=== PATIENT | female | born 1940 | race Hispanic/Latino ===

== ENCOUNTER 2018-04-25 13:16 | Observation (INO) | payer MEDICARE ==
[2018-04-25] MEDS ORDERED: Sodium Chloride 0.9% 500 ML IV STA (14:53)
[2018-04-25] MEDS ORDERED: Albuterol-Ipratrop 3 mg / 0.5 (3 ml) UD INH STA (14:55)
--- NOTE | 2018-04-25 14:57 | ED PDOC ---
HPI: Influenza Time Seen by Provider: 04/25/18 14:30 Chief Complaint: Cough, Cold, Congestion Chief Complaint (Provider): cough, SOB History Per: Patient, Family (nephews) Exam Limitations: no limitations Risk factors for flu complications: Yes: adult > 65 years Additional complaint(s):: 78 y/o F with hx of hydrocephalus with OCCUPATIONAL THERAPIST REHAB MANAGER shunt who presents with cough x 1 week. Pt states that she began developing a cough with chest congestion about 1 week ago with some chest pain related to the cough. She went to an urgent care where she was diagnosed with bronchitis/?PnA and started on Moxifloxacin. She states that she her cough has been getting worse and she feels more SOB. Her appetite has been poor and she has not been eating or drinking as much as she should because she feels weak. She has also been walking off balance and having DOMINGUEZ, which were her symptoms when her hydrocephalus was diagnosed. She is concerned that the OCCUPATIONAL THERAPIST REHAB MANAGER shunt may not be functioning. Denies dizziness, palpitations, C/P, N/V, diarrhea, sore throat. Past Medical History Reviewed: Historical Data, Nursing Documentation, Vital Signs Vital Signs: Last Vital Signs Temp 98 F 04/25/18 13:17 Pulse 78 04/25/18 13:17 Resp 18 04/25/18 13:17 BP 143/83 04/25/18 13:17 Pulse Ox 96 04/25/18 13:17 - Medical History Other PMH: hydrocephalus - Surgical History Other surgeries: OCCUPATIONAL THERAPIST REHAB MANAGER shunt - Family History Family History: States: Unknown Family Hx - Social History Ex-Smoker (has not smoked in the last 12 months): Yes (quit 30yrs ago) Alcohol: None - Allergies Allergies/Adverse Reactions: Allergies Allergy/AdvReac Type Severity Reaction Status Date / Time Penicillins Allergy ANAPHYLAXIS Verified 04/25/18 13:23 Review of Systems Constitutional: Negative for: Fever, Chills, Sweats Cardiovascular: Negative for: Chest Pain, Palpitations Respiratory: Positive for: Cough, Shortness of Breath, SOB with Exertion, S putum. Negative for: Pleuritic Pain Gastrointestinal: Negative for: Nausea, Vomiting Neurological: Positive for: Incoordination, Headache. Negative for: Weakness, Numbness Physical Exam - Reviewed Nursing Documentation Reviewed: Yes Vital Signs Reviewed: Yes - Physical Exam Appears: Positive for: No Acute Distress Head Exam: Positive for: ATRAUMATIC Skin: Positive for: Normal Color Neck: Positive for: Normal Cardiovascular/Chest: Positive for: Regular Rate, Rhythm Respiratory: Positive for: Wheezing (intermittent wheezing and rhonchi in B/L upper lung zones anteriorly. No rales.). Negative for: Accessory Muscle Use, Crackles, Respiratory Distress Gastrointestinal/Abdominal: Positive for: Normal Exam Neurologic/Psych: Positive for: Alert, Oriented. Negative for: Aphasia, Facial Droop Medical Decision Making Medical Decision Making: CBC, CMP Rapid flu DuoNeb x [address] w/o contrast shunt series Head CT: Moderate ventricular dilatation despite the presence of the OCCUPATIONAL THERAPIST REHAB MANAGER shunt. The 3rd and 4th ventricles in addition to the lateral ventricles are dilated. Cortical atrophy and chronic microvascular ischemic change. Shunt series: No abnormalities identified with respect to the shunt identified and described in greater detail above. 18:00: re-evaluated: Lung sounds improved but continues to wheeze B/L. DuoNeb 3mL x 2 ordered. Pt admitted for hydrocephalus and bronchitis under Dr. Luna who recommended BNP and Troponin; ordered. Dr. Wray called from neurology who recommends Brain MRI for further evaluation of hydrocephalus and neurosurgery consult. MRI ordered and to be done in AM. Neurosurgery consulted (Dr. Brandt) who states that equipment for OCCUPATIONAL THERAPIST REHAB MANAGER shunts not present and that, if patient has a hx of normal pressure hydrocephalus, he could see her as an outpatient. - Laboratory Results Result Diagrams: 04/25/18 15:00 04/25/18 15:00 - ECG O2 Sat by Pulse Oximetry: 96 Disposition - Clinical Impression Clinical Impression: Hydrocephalus in adult - Patient ED Disposition Is Patient to be Admitted: Transfer of Care Discussed With : Mars Luna Doctor Will See Patient In The: Hospital Counseled Patient/Family Regarding: Studies Performed, Diagnosis, Need For Followup - Disposition Disposition: Transfer of Care Disposition Time: 19:51 Condition: FAIR Forms: Predikt (Sinhala)
[2018-04-25] MEDS ORDERED: Albuterol-Ipratrop 3 mg / 0.5 (3 ml) UD ONE ×3 (15:22→20:39)
[2018-04-25 15:24] LABS: BASO # 0.1 K/uL (0.0-0.2); BASO % 0.7 % (0.0-2.0); EOS % 0.4 % (0.0-4.0); HEMOGLOBIN 14.8 g/dL (12.0-16.0); LYMPH # 1.9 K/uL (1.0-4.3); LYMPH % 16.5 % (20.0-40.0); MEAN CELL VOLUME 86.1 fl (81.0-99.0); MEAN CORPUSCULAR HEMOGLOBIN 28.2 pg (27.0-31.0); MEAN CORPUSCULAR HGB CONC 32.8 g/dL (33.0-37.0); MEAN PLATELET VOLUME 7.9 fl (7.2-11.7); MONO # 1.3 K/uL (0.0-0.8); MONO % 11.9 % (0.0-10.0); NEUT # 7.9 K/uL (1.8-7.0); NEUT % 70.5 % (50.0-75.0); NRBC % 0.3 % (0.0-0.0); RBC 5.24 Mil/uL (3.80-5.20); RED CELL DISTRIBUTION WIDTH 13.3 % (11.5-14.5); WHITE BLOOD COUNT 11.3 K/uL (4.8-10.8)
[2018-04-25 15:31] LABS: ALBUMIN 4.1 g/dL (3.5-5.0); ALT/SGPT 58 U/L (9-52); AST/SGOT 52 U/L (14-36); BLOOD UREA NITROGEN 26 mg/dl (7-17); CALCIUM 9.1 mg/dL (8.4-10.2); GFR NON-AFRICAN AMERICAN > 60
--- NOTE | 2018-04-25 15:41 | RAD ---
Date of service: 04/25/2018 HISTORY: Cough and shortness of breath COMPARISON: No prior. TECHNIQUE: Chest PA and lateral FINDINGS: LINES AND TUBES: None. LUNG AND PLEURA: The lungs are hyperinflated and there is peribronchial thickening with chronic changes in both lungs. No pleural effusion or pneumothorax. HEART AND MEDIASTINUM: The heart is not enlarged. No aortic atherosclerotic calcification present. The hilar and mediastinal contours are within normal limits. SKELETAL STRUCTURES: The bony structures are within normal limits for the patient's age. VISUALIZED UPPER ABDOMEN: Normal. OTHER FINDINGS: None. IMPRESSION: No active pulmonary disease. COPD.
[2018-04-25] MEDS ORDERED: Potassium Chloride 20 mEq ER Tab PO ONE ×2 (15:57→20:37)
--- NOTE | 2018-04-25 16:46 | CARD ---
APPROVED REPORT Date of service: 04/25/2018 EKG Measurement Heart [id number] <Conclusion> Normal sinus rhythm Right bundle branch block Inferior infarct, age undetermined Abnormal ECG
--- NOTE | 2018-04-25 17:09 | CT ---
Date of service: 04/25/2018 PROCEDURE: CT HEAD WITHOUT CONTRAST. HISTORY: hx of STRAND AND BINDER CONTROLLER shunt, now c/o gait instability Headache and congestion. COMPARISON: None available. TECHNIQUE: Axial computed tomography images were obtained through the head/brain without intravenous contrast. Supplemental Coronal and Sagittal projections created and reviewed. Radiation dose: Total exam DLP = 823.88 mGy-cm. This CT exam was performed using one or more of the following dose reduction techniques: Automated exposure control, adjustment of the mA and/or kV according to patient size, and/or use of iterative reconstruction technique. FINDINGS: HEMORRHAGE: No intracranial hemorrhage. BRAIN: No mass effect or edema. Cortical atrophy and chronic microvascular ischemic change. VENTRICLES: Ventricular enlargement despite the presence of a shunt catheter entering the right frontal lobe. The catheter advances to the anterior horn of the left lateral ventricle, the tip is in the anterior horn of the right lateral ventricle. Tip CALVARIUM: Craniotomy defect right frontal region. Findings in the calvarium associate with the STRAND AND BINDER CONTROLLER shunt. PARANASAL SINUSES: Pansinusitis. This includes the noise ethmoid, maxillary sinuses with trace frontal sinus disease. MASTOID AIR CELLS: Unremarkable as visualized. No inflammatory changes. OTHER FINDINGS: None. IMPRESSION: Moderate ventricular dilatation despite the presence of the STRAND AND BINDER CONTROLLER shunt. The 3rd and 4th ventricles in addition to the lateral ventricles are dilated. Cortical atrophy and chronic microvascular ischemic change.
--- NOTE | 2018-04-25 18:31 | RAD ---
Date of service: 04/25/2018 PROCEDURE: Shuntogram HISTORY: evaluate BAKERY AND DELI SALES MANAGER shunt COMPARISON: April 25, 2018 CT head TECHNIQUE: Standard protocol for this study/examination. FINDINGS: Shunt is identified in the skull, this extends posteriorly in an uninterrupted fashion through the neck thorax and abdomen. No visible discontinuity noted. No evidence of kinking or other pathologic process. IMPRESSION: No abnormalities identified with respect to the shunt identified and described in greater detail above.
[2018-04-25 20:38] LABS: B-TYPE NATRIURETIC PEPTIDE 168 pg/ml (0-900)
[2018-04-25] MEDS: Albuterol-Ipratrop 3 mg / 0.5 (3 ml) UD INH SCH (20:41)
--- NOTE | 2018-04-26 06:29 | CP.PCM.PN ---
Subjective - Date & Time of Evaluation Date of Evaluation: 04/26/18 Time of Evaluation: 06:23 - Subjective Subjective: reviewed CT and shuntogram no old studies available On CT there is no periventricular edema to suggest shunt failure and shuntogram is normal Headache and dizziness may be related to URI She has URI and would not consider revision until this is clear Yuki does not have equipment to do MOLD BUNCH TRIMMER shunt Suggest having her come to office and will arrange revision if symptoms persist after URI is resolved. Will also attempt to get more info on shunt placement at that time Unless there is clear indication that there is altereed mental status revision is not an emergency and can be done electively Objective - Vital Signs/Intake and Output Vital Signs (last 24 hours): Temp Pulse Resp BP Pulse Ox 97.3 F L 82 20 145/86 94 L 04/25/18 23:34 04/26/18 02:20 04/26/18 02:20 04/25/18 23:34 04/26/18 02:20 - Medications Medications: Current Medications Acetaminophen (Tylenol 325mg Tab) 650 mg PO Q6 PRN PRN Reason: Headache Albuterol/Ipratropium (Duoneb 3 Mg/0.5 Mg (3 Ml) Ud) 6 ml INH RQID [facility] Last Admin: 04/25/18 20:41 Dose: Not Given Aspirin (Ecotrin) 81 mg PO DAILY [facility] Enoxaparin Sodium (Lovenox) 40 mg SC DAILY [facility]; Protocol Ondansetron HCl (Zofran Inj) 4 mg IVP Q6 PRN PRN Reason: Nausea/Vomiting - Labs Labs: 04/25/18 15:00 04/25/18 15:00
[2018-04-26 06:32] LABS: HEMOGLOBIN 14.1 g/dL (12.0-16.0); MEAN CORPUSCULAR HEMOGLOBIN 28.3 pg (27.0-31.0); MEAN CORPUSCULAR HGB CONC 32.9 g/dL (33.0-37.0); RED CELL DISTRIBUTION WIDTH 13.1 % (11.5-14.5); WHITE BLOOD COUNT 8.3 K/uL (4.8-10.8)
[2018-04-26 06:41] LABS: ALBUMIN 3.8 g/dL (3.5-5.0); ALT/SGPT 49 U/L (9-52); AST/SGOT 41 U/L (14-36); BLOOD UREA NITROGEN 20 mg/dl (7-17); CALCIUM 8.8 mg/dL (8.4-10.2); GFR NON-AFRICAN AMERICAN > 60; HDL CHOLESTEROL 23 MG/DL (30-70)
[2018-04-26 06:50] LABS: LDL CHOLESTEROL 136 mg/dL (0-129)
[2018-04-26] MEDS: Albuterol-Ipratrop 3 mg / 0.5 (3 ml) UD INH SCH ×2 (07:36→07:42)
[2018-04-26] MEDS: Enoxaparin 40 mg Syringe SC SCH (08:46)
[2018-04-26] MEDS ORDERED: Potassium Chloride 20 mEq ER Tab PO ONE (10:03)
--- NOTE | 2018-04-26 14:20 | MRI ---
Date of service: 04/26/2018 PROCEDURE: MRI BRAIN WITHOUT CONTRAST HISTORY: ventricular dilatation despite CROP OR GRAIN FARMWORKER shunt COMPARISON: None available. TECHNIQUE: Multiplanar, multisequence MR images of the brain were obtained without intravenous contrast enhancement. FINDINGS: Limitations: Extensive dephasing artifact from the well of a left ventriculo peritoneal shunt catheter obscures evaluation of the a left temporal and parietal lobes extensively, particularly in sensitive sequences including the diffusion-weighted and gradient echo axial sequences. HEMORRHAGE: None identified with sequence limited by artifact. DWI: No acute infarct identified with much of the mid to posterior left cerebrum and lateral margins left cerebellar hemisphere obscured by artifact. BRAIN PARENCHYMA: Diffuse cerebral atrophy chronic microangiopathy are reiterated with left frontal shunt catheter tip identified terminating at right lateral ventricle anteriorly by a left frontal approach and shunt well identified at the left parietal scalp. Diffuse ventricular dilatation again identified with forefoot 4th ventricle least affected though the pattern likely still reflects increasing hydrocephalus. No discrete mass is seen in this unenhanced exam in the region of the cerebral aqueduct. Old right frontal shunt related linear encephalomalacia noted at the right frontal lobe VENTRICLES: Diffuse dilatation reiterated. CRANIUM: Unremarkable. ORBITS: Grossly unremarkable. PARANASAL SINUSES/MASTOIDS: Extensive bilateral sphenoid sinusitis identified as well as multifocal ethmoid and gross bilateral maxillary sinusitis. Limited bilateral frontal sinusitis noted. Trace left mastoid effusions noted. VASCULAR SYSTEM: Skull base flow voids intact. OTHER FINDINGS: None. IMPRESSION: Compromised exam by artifact related to left ventricular shunt well. Pattern hydrocephalus persists presumably on the basis of normal pressure/communicating hydrocephalus. Left ventricular shunt identified with tip terminating at right lateral ventricle as discussed above. No distant prior brain imaging available for comparison of ventricular volume. Age-related neuro degenerative changes identified once again. Old right frontal shunt related linear encephalomalacia noted at the right frontal lobe.
--- NOTE | 2018-04-26 14:32 | CP.PCM.CON ---
History of Present Illness - History of Present Illness History of Present Illness: Neurology Consultation Note: Mrs. Cason is a 78-year-old woman with a previous history of TASSEL SNIPPER shunt, who presented to the ED with URI symptoms and complained of dizziness and gait difficulty. Neurosurgery was consulted after TASSEL SNIPPER shunt series and CT head were done and did not believe that there was any concern for shunt failure. CT scan did show hydrocephalus, but it did not appear to be acute. I spoke with ED and asked for MRI of the brain to evaluate for any periventricular edema that may suggest more acute hydrocephalus. Review of Systems - Constitutional Constitutional: As Per HPI - EENT Eyes: absent: As Per HPI, Blind Spots, Blurred Vision, Change in Vision, Decreased Night Vision, Diplopia, Discharge, Dry Eye, Exophthalmos, Floaters, Irritation, Itchy Eyes, Loss of Peripheral Vision, Pain, Photophobia, Requires Corrective Lenses, Sees Flashes, Spots in Vision, Tunnel Vision, Other Visual Disturbances, Loss of Vision, Other Ears: absent: As Per HPI, Decreased Hearing, Ear Discharge, Ear Pain, Tinnitus, Abnormal Hearing, Disequilibrium, Dizziness, Other Nose/Mouth/Throat: absent: As Per HPI, Epistaxis, Nasal Congestion, Nasal Discharge, Nasal Obstruction, Nasal Trauma, Nose Pain, Post Nasal Drip, Sinus Pain, Sinus Pressure, Bleeding Gums, Change in Voice, Dental Pain, Dry Mouth, Dysphagia, Halitosis, Hoarsness, Lip Swelling, Mouth Lesions, Mouth Pain, Odynophagia, Sore Throat, Throat Swelling, Tongue Swelling, Facial Pain, Neck Pain, Neck Mass, Other - Breasts Breasts: absent: As Per HPI, Change in Shape, Mass, Pain, Nipple Discharge, Nipple Inversion, Skin Changes, Swelling, Other - Cardiovascular Cardiovascular: absent: As Per HPI, Acrocyanosis, Chest Pain, Chest Pain at Rest, Chest Pain with Activity, Claudication, Diaphoresis, Dyspnea, Dyspnea on Exertion, Edema, Irregular Heart Rhythm, Pain Radiating to Arm/Neck/Jaw, Leg Edema, Leg Ulcers, Lightheadedness, Orthopnea, Palpitations, Paroxysmal Nocturnal Dyspnea, Pedal Edema, Radiating Pain, Rapid Heart Rate, Slow Heart Rate, Syncope, Other - Respiratory Respiratory: As Per HPI - Gastrointestinal Gastrointestinal: absent: As Per HPI, Abdominal Pain, Belching, Bloating, Change in Bowel Habits, Change in Stool Character, Coffee Ground Emesis, Constipation, Cramping, Diarrhea, Dyspepsia, Dysphagia, Early Satiety, Excessive Flatus, Fecal Incontinence, Heartburn, Hematemesis, Hematochezia, Loose Stools, Melena, Nausea, Odynophagia, Temesmus, Vomiting, Other - Genitourinary Genitourinary: absent: As Per HPI, Change in Urinary Stream, Difficulty Urinating, Dysuria, Flank Pain, Hematuria, Pyuria, Nocturia, Urinary Incontinence, Urinary Frequency, Urinary Hesitance, Urinary Urgency, Voiding Freq/Small Amts, Freq UTI, Hx Renal/Bladder Calculi, Hx /Renal Surgery, Bladder Distension, Other - Musculoskeletal Musculoskeletal: absent: As Per HPI, Abnormal Gait, Arthralgias, Atrophy, Back Pain, Deformity, Joint Swelling, Limited Range of Motion, Loss of Height, Muscle Cramps, Muscle Weakness, Myalgias, Neck Pain, Numbness, Radiating Pain into Limb , Stiffness, Tingling, Other - Integumentary Integumentary: absent: As Per HPI, Acne, Alopecia, Bleeding Lesions, Change in Hair, Change in Nails, Change in Pigmentation, Changing Lesions, Dry Skin, Erythema, Furuncle, Hirsutism, Lesions, New Lesions, Non-Healing Lesions, Photosensitivity, Pruritus, Rash, Skin Pain, Skin Ulcer, Sores, Striae, Swelling, Unusual Bruising, Wounds, Jaundice, Other - Neurological Neurological: As Per HPI - Psychiatric Psychiatric: absent: As Per HPI, Abnormal Sleep Pattern, Anhedonia, Anxiety, Auditory Hallucinations, Behavioral Changes, Change in Appetite, Change in Libido, Confusion, Depression, Difficulty Concentrating, Hallucinations, Homicid al Ideation, Hopelessness, Irritability, Memory Loss, Mood Swings, Panic Attacks, Paranoia, Suicidal Ideation, Visual Hallucinations, Tactile Hallucinations, Other - Endocrine Endocrine: absent: As Per HPI, Change in Body Appearance, Change in Libido, Cold Intolorance, Deepening of Voice, Excessive Sweating, Fatigue, Flushing, Heat Intolorance, Increase in Ring/Shoe/Hat Size, Palpitations, Polydipsia, Polyphagia, Polyuria, Other Past Patient History - Past Medical History & Family History Past Medical History?: Yes - Past Social History Smoking Status: Former Smoker - CARDIAC Hx Cardiac Disorders: No - PULMONARY Hx Respiratory Disorders: No - NEUROLOGICAL Hx Neurological Disorder: Yes Other/Comment: Hydrocephalus - HEENT Hx HEENT Problems: No - RENAL Hx Chronic Kidney Disease: No - ENDOCRINE/METABOLIC Hx Endocrine Disorders: No - HEMATOLOGICAL/ONCOLOGICAL Hx Blood Disorders: No - INTEGUMENTARY Hx Dermatological Problems: No - MUSCULOSKELETAL/RHEUMATOLOGICAL Hx Musculoskeletal Disorders: No Hx Falls: Yes - GASTROINTESTINAL Hx Gastrointestinal Disorders: No - GENITOURINARY/GYNECOLOGICAL Hx Genitourinary Disorders: No - PSYCHIATRIC Hx Psychophysiologic Disorder: No Hx Substance Use: No - SURGICAL HISTORY Hx Surgeries: No Other/Comment: TASSEL SNIPPER shunt - ANESTHESIA Hx Anesthesia: Yes Hx Anesthesia Reactions: No Meds Allergies/Adverse Reactions: Allergies Allergy/AdvReac Type Severity Reaction Status Date / Time Penicillins Allergy ANAPHYLAXIS Verified 04/25/18 13:23 - Medications Medications: Current Medications Acetaminophen (Tylenol 325mg Tab) 650 mg PO Q6 PRN PRN Reason: Headache Last Admin: 04/26/18 13:49 Dose: 650 mg Aspirin (Ecotrin) 81 mg PO DAILY [facility] Last Admin: 04/26/18 08:46 Dose: 81 mg Enoxaparin Sodium (Lovenox) 40 mg SC DAILY [facility]; Protocol Last Admin: 04/26/18 08:46 Dose: 40 mg Ondansetron HCl (Zofran Inj) 4 mg IVP Q6 PRN PRN Reason: Nausea/Vomiting Physical Exam - Constitutional Appears: Well - Head Exam Head Exam: ATRAUMATIC, NORMAL INSPECTION, NORMOCEPHALIC - Eye Exam Eye Exam: EOMI, Normal appearance, PERRL - ENT Exam ENT Exam: Mucous Membranes Moist, Normal Exam - Neck Exam Neck exam: Positive for: Normal Inspection - Respiratory Exam Respiratory Exam: Decreased Breath Sounds, NORMAL BREATHING PATTERN - Cardiovascular Exam Cardiovascular Exam: REGULAR RHYTHM, +S1, +S2 - GI/Abdominal Exam GI & Abdominal Exam: Normal Bowel Sounds, Soft. absent: Tenderness - Rectal Exam Rectal Exam: Deferred - Extremities Exam Extremities exam: Positive for: normal inspection - Back Exam Back exam: NORMAL INSPECTION - Neurological Exam Neurological exam: Abnormal Gait, Alert, CN II-XII Intact, Oriented x3, Reflexes Normal - Psychiatric Exam Psychiatric exam: Normal Affect, Normal Mood - Skin Skin Exam: Dry, Intact, Normal Color, Warm Results - Vital Signs Recent Vital Signs: Last Vital Signs Temp 97.9 F 01/08/19 07:52 Pulse 84 04/26/18 07:52 Resp 19 04/26/18 07:52 BP 137/75 04/26/18 07:52 Pulse Ox 94 L 04/26/18 07:52 - Labs Result Diagrams: 04/26/18 05:45 04/26/18 05:45 Labs: Laboratory Results - last 24 hr 04/25/18 04/25/18 04/25/18 15:00 15:00 15:00 WBC 11.3 H RBC 5.24 H Hgb 14.8 Hct 45.1 MCV 86.1 MCH 28.2 MCHC 32.8 L RDW 13.3 Plt Count 394 MPV 7.9 Neut % (Auto) 70.5 Lymph % (Auto) 16.5 L [place] % (Auto) 11.9 H Eos % (Auto) 0.4 Baso % (Auto) 0.7 Neut # (Auto) 7.9 H Lymph # (Auto) 1.9 [place] # (Auto) 1.3 H Eos # (Auto) 0.0 Baso # (Auto) 0.1 Sodium 138 Potassium 3.2 L Chloride 98 Carbon Dioxide 24 Anion Gap 19 BUN 26 H Creatinine 0.5 L Est GFR ( Amer) > 60 Est GFR (Non-Af Amer) > 60 Random Glucose 105 Calcium 9.1 Total Bilirubin 0.9 AST 52 H ALT 58 H Alkaline Phosphatase 104 Troponin I NT-Pro-B Natriuret Pep Total Protein 8.2 Albumin 4.1 Globulin 4.1 H Albumin/Globulin Ratio 1.0 Triglycerides Cholesterol LDL Cholesterol Direct HDL Cholesterol TSH 3rd Generation Influenza Typ A,B (EIA) Negative for flu a/b 04/25/18 04/26/18 04/26/18 20:09 05:45 05:45 WBC 8.3 RBC 5.00 Hgb 14.1 Hct 43.0 MCV 86.0 MCH 28.3 MCHC 32.9 L RDW 13.1 Plt Count 403 H MPV Neut % (Auto) Lymph % (Auto) [place] % (Auto) Eos % (Auto) Baso % (Auto) Neut # (Auto) Lymph # (Auto) [place] # (Auto) Eos # (Auto) Baso # (Auto) Sodium 139 Potassium 3.1 L Chloride 102 Carbon Dioxide 26 Anion Gap 14 BUN 20 H Creatinine 0.5 L Est GFR ( Amer) > 60 Est GFR (Non-Af Amer) > 60 Random Glucose 92 Calcium 8.8 Total Bilirubin 0.8 AST 41 H D ALT 49 Alkaline Phosphatase 95 Troponin I < 0.0120 NT-Pro-B Natriuret Pep 168 Total Protein 7.5 Albumin 3.8 Globulin 3.8 Albumin/Globulin Ratio 1.0 Triglycerides 113 Cholesterol 163 LDL Cholesterol Direct 136 H HDL Cholesterol 23 L TSH 3rd Generation 0.39 L Influenza Typ A,B (EIA) Assessment & Plan (1) Hydrocephalus in adult Assessment and Plan: MRI of the brain does not show acute hydrocephalus. The patient may have symptoms of dizziness due to URI. I agree with neurosurgery regarding following up with them as outpatient. She continues to have headache. I will start her on magnesium oxide 400 mg BID and topamax 25 mg daily with a plan to titrate up as an outpatient. For the current pain, decadron 10 mg IV will be given. No further recommendations. Thank you. Status: Acute
[2018-04-26] MEDS ORDERED: Dexamethasone 10 MG in Sodium Chloride 0.9% 50 ML IVPB ONE (14:56)
[2018-04-26] MEDS ORDERED: Dexamethasone 4 mg/1 ml IVP ONE (15:15)
--- NOTE | 2018-04-26 15:27 | CP.PCM.PN ---
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 she has info about her shunt placement at home Discussed with her managment She will contact my office for f/u and obtain her records about the shunt placement+ Objective - Vital Signs/Intake and Output Vital Signs (last 24 hours): Temp Pulse Resp BP Pulse Ox 97.9 F 84 19 137/75 94 L 04/26/18 07:52 04/26/18 07:52 04/26/18 07:52 04/26/18 07:52 04/26/18 07:52 - Medications Medications: Current Medications Acetaminophen (Tylenol 325mg Tab) 650 mg PO Q6 PRN PRN Reason: Headache Last Admin: 04/26/18 13:49 Dose: 650 mg Aspirin (Ecotrin) 81 mg PO DAILY [facility] Last Admin: 04/26/18 08:46 Dose: 81 mg Enoxaparin Sodium (Lovenox) 40 mg SC DAILY [facility]; Protocol Last Admin: 04/26/18 08:46 Dose: 40 mg Magnesium Oxide (Mag-Ox) 400 mg PO BID [facility] Ondansetron HCl (Zofran Inj) 4 mg IVP Q6 PRN PRN Reason: Nausea/Vomiting Topiramate (Topamax) 25 mg PO BID [facility] - Labs Labs: 04/26/18 05:45 04/26/18 05:45
[2018-04-26] MEDS: Magnesium Oxide 400 mg Tab UD PO SCH (16:34)
[2018-04-26] MEDS: Azithromycin 500 MG in Sodium Chloride 0.9% 250 ML IVPB SCH (20:01)
[2018-04-27] MEDS: Magnesium Oxide 400 mg Tab UD PO SCH ×2 (08:42→16:29)
[2018-04-27] MEDS: Enoxaparin 40 mg Syringe SC SCH (08:42)
[2018-04-27] MEDS: Azithromycin 500 MG in Sodium Chloride 0.9% 250 ML IVPB SCH (08:43)
--- NOTE | 2018-04-27 12:35 | CP.PCM.PN ---
Subjective - Date & Time of Evaluation Date of Evaluation: 04/27/18 Time of Evaluation: 12:34 - Subjective Subjective: Neurology Follow-Up Note: Mrs. Cason was evaluated this afternoon. Family at bedside. Pt admits to still having headache with nausea. She received Topamax and Mag Oxide since last night, as well as one dose of Decadron last night. Pt states h/a now is a 10/10 and is associated with nausea and decreased appetite. Per son, she has these episodes frequently at home. She states her pain is a little better compared to yesterday. Denies dizziness, changes in speech, visual changes, chest pain, palpitations, sob, abd pain, vomiting/diarrhea. Objective - Vital Signs/Intake and Output Vital Signs (last 24 hours): Temp Pulse Resp BP Pulse Ox 97.5 F L 69 19 166/69 H 95 04/27/18 07:59 04/27/18 07:59 04/27/18 07:59 04/27/18 07:59 04/27/18 07:59 - Medications Medications: Current Medications Acetaminophen (Tylenol 325mg Tab) 650 mg PO Q6 PRN PRN Reason: Headache Last Admin: 04/27/18 11:24 Dose: 650 mg Aspirin (Ecotrin) 81 mg PO DAILY [facility] Last Admin: 04/27/18 08:42 Dose: 81 mg Enoxaparin Sodium (Lovenox) 40 mg SC DAILY [facility]; Protocol Last Admin: 04/27/18 08:42 Dose: 40 mg Azithromycin 500 mg/ Sodium (Chloride) 250 mls @ 250 mls/hr IVPB DAILY [facility]; Protocol Last Admin: 04/27/18 08:43 Dose: 250 mls/hr Magnesium Oxide (Mag-Ox) 400 mg PO BID [facility] Last Admin: 04/27/18 08:42 Dose: 400 mg Ondansetron HCl (Zofran Inj) 4 mg IVP Q6 PRN PRN Reason: Nausea/Vomiting Topiramate (Topamax) 25 mg PO BID [facility] Last Admin: 04/27/18 08:42 Dose: 25 mg - Labs Labs: 04/26/18 05:45 04/26/18 05:45 - Constitutional Appears: Well, Non-toxic - Head Exam Head Exam: ATRAUMATIC, NORMAL INSPECTION, NORMOCEPHALIC - Eye Exam Eye Exam: EOMI, Normal appearance, PERRL Pupil Exam: NORMAL ACCOMODATION - ENT Exam ENT Exam: Mucous Membranes Moist - Neck Exam Neck Exam: Full ROM - Respiratory Exam Respiratory Exam: NORMAL BREATHING PATTERN - Extremities Exam Extremities Exam: Full ROM - Neurological Exam Neurological Exam: Alert, Awake, CN II-XII Intact, Oriented x3 Neuro motor strength exam: Left Upper Extremity: 5, Right Upper Extremity: 5, Left Lower Extremity: 5, Right Lower Extremity: 5 - Psychiatric Exam Psychiatric exam: Normal Affect, Normal Mood - Skin Skin Exam: Normal Color Assessment and Plan (1) Headache Assessment & Plan: Imaging reviewed: -MRI Brain (04/25/18): Compromised exam by artifact related to left ventricular shunt well. Pattern hydrocephalus persists presumably on the basis of normal pressure/communicating hydrocephalus. Left ventricular shunt identified with tip terminating at right lateral ventricle as discussed above. No distant prior brain imaging available for comparison of ventricular volume. Age-related neuro degenerative changes identified once again. Old right frontal shunt related linear encephalomalacia noted at the right frontal lobe. -CT Head (04/25/18): Moderate ventricular dilatation despite the presence of the PILOT SUBMERSIBLE shunt. The 3rd and 4th ventricles in addition to the lateral ventricles are dilated. Cortical atrophy and chronic microvascular ischemic change. -Toradol 30mg IVP x1 dose and Zofran 4mg IV x1 dose ordered for now for h/a and nausea. -Continue Topamax and Mag Oxide as ordered while in the hospital and upon discharge. -Notify neuro of any acute changes in pt condition. Will continue to follow. Case discussed with Dr. Wray Status: Acute (2) Hydrocephalus in adult Assessment & Plan: Imaging reviewed: -MRI Brain (04/25/18): Compromised exam by artifact related to left ventricular shunt well. Pattern hydrocephalus persists presumably on the basis of normal pressure/communicating hydrocephalus. Left ventricular shunt identified with tip terminating at right lateral ventricle as discussed above. No distant prior brain imaging available for comparison of ventricular volume. Age-related neuro degenerative changes identified once again. Old right frontal shunt related linear encephalomalacia noted at the right frontal lobe. -Shuntogram (04/25/18): No abnormalities identified with respect to the shunt identified and described in greater detail above. -CT Head (04/25/18): Moderate ventricular dilatation despite the presence of the PILOT SUBMERSIBLE shunt. The 3rd and 4th ventricles in addition to the lateral ventricles are dilated. Cortical atrophy and chronic microvascular ischemic change. -Neurosurgery on case---pt to f/u with them as well as outpatient. -Notify neuro of any acute changes in pt condition. Case discussed with Dr. Wray Status: Acute
[2018-04-27 14:05] LABS: BLOOD UREA NITROGEN 20 mg/dl (7-17); CALCIUM 9.5 mg/dL (8.4-10.2); GFR NON-AFRICAN AMERICAN > 60
[2018-04-27 23:38] VITALS: O2SAT 95
--- NOTE | 2018-04-28 01:34 | CP.PCM.HP ---
Past Patient History - Past Medical History & Family History Past Medical History?: Yes - Past Social History Smoking Status: Former Smoker - CARDIAC Hx Cardiac Disorders: No - PULMONARY Hx Respiratory Disorders: No - NEUROLOGICAL Hx Neurological Disorder: Yes Other/Comment: Hydrocephalus - HEENT Hx HEENT Problems: No - RENAL Hx Chronic Kidney Disease: No - ENDOCRINE/METABOLIC Hx Endocrine Disorders: No - HEMATOLOGICAL/ONCOLOGICAL Hx Blood Disorders: No - INTEGUMENTARY Hx Dermatological Problems: No - MUSCULOSKELETAL/RHEUMATOLOGICAL Hx Musculoskeletal Disorders: No Hx Falls: Yes - GASTROINTESTINAL Hx Gastrointestinal Disorders: No - GENITOURINARY/GYNECOLOGICAL Hx Genitourinary Disorders: No - PSYCHIATRIC Hx Psychophysiologic Disorder: No Hx Substance Use: No - SURGICAL HISTORY Hx Surgeries: No Other/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: 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 - ANESTHESIA Hx Anesthesia: Yes Hx Anesthesia Reactions: No Meds Allergies/Adverse Reactions: Allergies Allergy/AdvReac Type Severity Reaction Status Date / Time Penicillins Allergy ANAPHYLAXIS Verified 04/25/18 13:23 Results - Vital Signs Recent Vital Signs: Last Vital Signs Temp 97.3 F L 04/27/18 23:37 Pulse 70 04/27/18 23:37 Resp 18 04/27/18 23:37 BP 126/75 04/27/18 23:37 Pulse Ox 95 04/27/18 23:37 - Labs Result Diagrams: 04/26/18 05:45 04/27/18 13:34 Labs: Laboratory Results - last 24 hr 04/27/18 13:34 Sodium 137 Potassium 3.7 Chloride 101 Carbon Dioxide 20 L Anion Gap 20 BUN 20 H Creatinine 0.5 L Est GFR ( Amer) > 60 Est GFR (Non-Af Amer) > 60 Random Glucose 153 H Calcium 9.5
--- NOTE | 2018-04-28 01:35 | CP.PCM.PN ---
Subjective - Date & Time of Evaluation Date of Evaluation: 04/27/18 Time of Evaluation: 13:35 Objective - Vital Signs/Intake and Output Vital Signs (last 24 hours): Temp Pulse Resp BP Pulse Ox 97.3 F L 70 18 126/75 95 04/27/18 23:37 04/27/18 23:37 04/27/18 23:37 04/27/18 23:37 04/27/18 23:37 - Medications Medications: Current Medications Acetaminophen (Tylenol 325mg Tab) 650 mg PO Q6 PRN PRN Reason: Headache Last Admin: 04/27/18 11:24 Dose: 650 mg Aspirin (Ecotrin) 81 mg PO DAILY [facility] Last Admin: 04/27/18 08:42 Dose: 81 mg Enoxaparin Sodium (Lovenox) 40 mg SC DAILY [facility]; Protocol Last Admin: 04/27/18 08:42 Dose: 40 mg Azithromycin 500 mg/ Sodium (Chloride) 250 mls @ 250 mls/hr IVPB DAILY [facility]; Protocol Last Admin: 04/27/18 08:43 Dose: 250 mls/hr Magnesium Oxide (Mag-Ox) 400 mg PO BID [facility] Last Admin: 04/27/18 16:29 Dose: 400 mg Ondansetron HCl (Zofran Inj) 4 mg IVP Q6 PRN PRN Reason: Nausea/Vomiting Last Admin: 04/27/18 13:04 Dose: 4 mg Topiramate (Topamax) 25 mg PO BID [facility] Last Admin: 04/27/18 16:29 Dose: 25 mg - Labs Labs: 04/26/18 05:45 04/27/18 13:34
[2018-04-28] MEDS: Enoxaparin 40 mg Syringe SC SCH (09:22)
[2018-04-28] MEDS: Magnesium Oxide 400 mg Tab UD PO SCH (09:22)
[2018-04-28] MEDS: Azithromycin 500 MG in Sodium Chloride 0.9% 250 ML IVPB SCH (09:29)
--- NOTE | 2018-04-28 12:58 | CP.PCM.PN ---
Subjective - Date & Time of Evaluation Date of Evaluation: 04/28/18 Time of Evaluation: 12:58 - Subjective Subjective: Neurology Follow-Up Note: Mrs. Cason was evaluated this afternoon. Family at bedside. Pt admits to still having headache with some improvement compared to yesterday. She is still receiving Topamax and Mag Oxide; tolerating well. Pt states h/a at this time is a 7/10. Per pt and family she is for d/c home today and they are upset that she is not being d/c to rehab. Denies dizziness, changes in speech, visual changes, chest pain, palpitations, sob, abd pain, n/v/d. Objective - Vital Signs/Intake and Output Vital Signs (last 24 hours): Temp Pulse Resp BP Pulse Ox 97.5 F L 69 19 103/68 95 04/28/18 08:27 04/28/18 08:27 04/28/18 08:27 04/28/18 08:27 04/28/18 08:27 - Medications Medications: Current Medications Acetaminophen (Tylenol 325mg Tab) 650 mg PO Q6 PRN PRN Reason: Headache Last Admin: 04/27/18 11:24 Dose: 650 mg Aspirin (Ecotrin) 81 mg PO DAILY [facility] Last Admin: 04/28/18 09:22 Dose: 81 mg Enoxaparin Sodium (Lovenox) 40 mg SC DAILY [facility]; Protocol Last Admin: 04/28/18 09:22 Dose: 40 mg Azithromycin 500 mg/ Sodium (Chloride) 250 mls @ 250 mls/hr IVPB DAILY [facility]; Protocol Last Admin: 04/28/18 09:29 Dose: 250 mls/hr Magnesium Oxide (Mag-Ox) 400 mg PO BID [facility] Last Admin: 04/28/18 09:22 Dose: 400 mg Ondansetron HCl (Zofran Inj) 4 mg IVP Q6 PRN PRN Reason: Nausea/Vomiting Last Admin: 04/27/18 13:04 Dose: 4 mg Topiramate (Topamax) 25 mg PO BID [facility] Last Admin: 04/28/18 09:22 Dose: 25 mg - Labs Labs: 04/26/18 05:45 04/27/18 13:34 - Constitutional Appears: Well, Non-toxic, No Acute Distress - Head Exam Head Exam: ATRAUMATIC, NORMAL INSPECTION, NORMOCEPHALIC - Eye Exam Eye Exam: EOMI, Normal appearance, PERRL Pupil Exam: NORMAL ACCOMODATION, PERRL - ENT Exam ENT Exam: Mucous Membranes Moist - Neck Exam Neck Exam: Full ROM, Normal Inspection - Respiratory Exam Respiratory Exam: NORMAL BREATHING PATTERN - Extremities Exam Extremities Exam: Full ROM. absent: Calf Tenderness, Pedal Edema - Back Exam Back Exam: Full ROM - Neurological Exam Neurological Exam: Alert, Awake, CN II-XII Intact, Oriented x3, Reflexes Normal Neuro motor strength exam: Left Upper Extremity: 5, Right Upper Extremity: 5, Left Lower Extremity: 5, Right Lower Extremity: 5 Additional comments: no focal neuro deficits - Psychiatric Exam Psychiatric exam: Normal Affect, Normal Mood - Skin Skin Exam: Normal Color Assessment and Plan (1) Headache Assessment & Plan: Imaging reviewed: -MRI Brain (04/25/18): Compromised exam by artifact related to left ventricular shunt well. Pattern hydrocephalus persists presumably on the basis of normal pressure/communicating hydrocephalus. Left ventricular shunt identified with tip terminating at right lateral ventricle as discussed above. No distant prior brain imaging available for comparison of ventricular volume. Age-related neuro degenerative changes identified once again. Old right frontal shunt related linear encephalomalacia noted at the right frontal lobe. -CT Head (04/25/18): Moderate ventricular dilatation despite the presence of the LEGISLATIVE ASSISTANT shunt. The 3rd and 4th ventricles in addition to the lateral ventricles are dilated. Cortical atrophy and chronic microvascular ischemic change. -Continue Topamax and Mag Oxide as ordered while in the hospital and upon discharge. -Continue PT; pt may benefit from rehab placement or TCU is she qualifies. -If pt is d/c today, please have her f/u with Dr. Wray in the office within 1 month. She is to also receive Rx for Mag Oxide 400mg PO BID and Topamaxc 25mg PO BID. -Notify neuro of any acute changes in pt condition. Case discussed with Dr. Wray Status: Acute (2) Hydrocephalus in adult Assessment & Plan: Imaging reviewed: -MRI Brain (04/25/18): Compromised exam by artifact related to left ventricular shunt well. Pattern hydrocephalus persists presumably on the basis of normal pressure/communicating hydrocephalus. Left ventricular shunt identified with tip terminating at right lateral ventricle as discussed above. No distant prior brain imaging available for comparison of ventricular volume. Age-related neuro degenerative changes identified once again. Old right frontal shunt related linear encephalomalacia noted at the right frontal lobe. -Shuntogram (04/25/18): No abnormalities identified with respect to the shunt id entified and described in greater detail above. -CT Head (04/25/18): Moderate ventricular dilatation despite the presence of the LEGISLATIVE ASSISTANT shunt. The 3rd and 4th ventricles in addition to the lateral ventricles are dilated. Cortical atrophy and chronic microvascular ischemic change. -Neurosurgery on case---pt to f/u with them as well as outpatient. -Notify neuro of any acute changes in pt condition. Case discussed with Dr. Wray Status: Acute
--- NOTE | 2018-04-28 14:47 | CP.PCM.PCO ---
Assessment/Plan - Assessment/Plan Assessment (Free Text): Pt seen and assesed, stable. headache improved. Pt and nephew at bedside made aware pt for d/c home today. Pt's nephew states he will prefer [facility], made him aware pt ambulating 200 ft per PT and pt has been cleared by all consultants for outpatient f/u and also cleared by Dr. Luna for d/c home with home PT and OT. Jennifer KEENAN aware to refer home services. Patient states she has cane and walker at home. Patient and nephew made aware to f/u with PMD or Dr. Luna and also to set up outpatient f/u appointments with Dr. Wray and Dr. Brandt, verbalized understanding. Meds as per med rec, Rx given. - Consults Consult Orders: Consultations
[2018-04-28 16:00] VITALS: BP 105/67; PULSE 57; RESP 18; TEMP 97.9
--- NOTE | 2018-04-28 22:41 | CP.PCM.DIS ---
Provider - Provider Date of Admission: 04/25/18 19:54 Attending physician: Mars Luna MD Consults: 04/25/18 19:32 Neurology Consult Stat Comment: Consulting Provider: Jeb Wray Consulting Physician: Jeb Wray Reason for Consult: hx of PUMP REBUILDER shunt, vent dilatation on head CT 04/25/18 19:33 Neuro Surgery Consult Stat Comment: Consulting Provider: Guanaco Brandt Consulting Physician: Guanaco Brandt Reason for Consult: ventricular dilatation despite PUMP REBUILDER shunt 04/26/18 07:27 Nursing Referral for Wound Care Routine Comment: Physician Instructions: Reason For Exam: [facility] Course - Lab Results Lab Results: Most Recent Lab Values WBC 8.3 K/uL (4.8-10.8) 04/26/18 05:45 RBC 5.00 Mil/uL (3.80-5.20) 04/26/18 05:45 Hgb 14.1 g/dL (12.0-16.0) 04/26/18 05:45 Hct 43.0 % (34.0-47.0) 04/26/18 05:45 MCV 86.0 fl (81.0-99.0) 04/26/18 05:45 MCH 28.3 pg (27.0-31.0) 04/26/18 05:45 MCHC 32.9 g/dL (33.0-37.0) L 04/26/18 05:45 RDW 13.1 % (11.5-14.5) 04/26/18 05:45 Plt Count 403 K/uL (130-400) H 04/26/18 05:45 MPV 7.9 fl (7.2-11.7) 04/25/18 15:00 Neut % (Auto) 70.5 % (50.0-75.0) 04/25/18 15:00 Lymph % (Auto) 16.5 % (20.0-40.0) L 04/25/18 15:00 [place] % (Auto) 11.9 % (0.0-10.0) H 04/25/18 15:00 Eos % (Auto) 0.4 % (0.0-4.0) 04/25/18 15:00 Baso % (Auto) 0.7 % (0.0-2.0) 04/25/18 15:00 Neut # (Auto) 7.9 K/uL (1.8-7.0) H 04/25/18 15:00 Lymph # (Auto) 1.9 K/uL (1.0-4.3) 04/25/18 15:00 [place] # (Auto) 1.3 K/uL (0.0-0.8) H 04/25/18 15:00 Eos # (Auto) 0.0 K/uL (0.0-0.7) 04/25/18 15:00 Baso # (Auto) 0.1 K/uL (0.0-0.2) 04/25/18 15:00 Sodium 137 mmol/l (132-148) 04/27/18 13:34 Potassium 3.7 MMOL/L (3.6-5.0) 04/27/18 13:34 Chloride 101 mmol/L (98-107) 04/27/18 13:34 Carbon Dioxide 20 mmol/L (22-30) L 04/27/18 13:34 Anion Gap 20 (10-20) 04/27/18 13:34 BUN 20 mg/dl (7-17) H 04/27/18 13:34 Creatinine 0.5 mg/dl (0.7-1.2) L 04/27/18 13:34 Est GFR ( Amer) > 60 04/27/18 13:34 Est GFR (Non-Af Amer) > 60 04/27/18 13:34 Random Glucose 153 mg/dL (65-105) H 04/27/18 13:34 Calcium 9.5 mg/dL (8.4-10.2) 04/27/18 13:34 Total Bilirubin 0.8 mg/dl (0.2-1.3) 04/26/18 05:45 AST 41 U/L (14-36) H D 04/26/18 05:45 ALT 49 U/L (9-52) 04/26/18 05:45 Alkaline Phosphatase 95 U/L (38-126) 04/26/18 05:45 Troponin I < 0.0120 ng/mL (0.00-0.120) 04/25/18 20:09 NT-Pro-B Natriuret Pep 168 pg/ml (0-900) 04/25/18 20:09 Total Protein 7.5 G/DL (6.3-8.2) 04/26/18 05:45 Albumin 3.8 g/dL (3.5-5.0) 04/26/18 05:45 Globulin 3.8 gm/dL (2.2-3.9) 04/26/18 05:45 Albumin/Globulin Ratio 1.0 (1.0-2.1) 04/26/18 05:45 Triglycerides 113 mg/DL (0-149) 04/26/18 05:45 Cholesterol 163 mg/dL (0-199) 04/26/18 05:45 LDL Cholesterol Direct 136 mg/dL (0-129) H 04/26/18 05:45 HDL Cholesterol 23 MG/DL (30-70) L 04/26/18 05:45 TSH 3rd Generation 0.39 mIU/ML (0.46-4.68) L 04/26/18 05:45 Influenza Typ A,B (EIA) Negative for flu a/b (NEGATIVE) 04/25/18 15:00 Discharge Exam - Head Exam Head Exam: ATRAUMATIC, NORMAL INSPECTION, NORMOCEPHALIC Discharge Plan - Discharge Medications Prescriptions: Magnesium Oxide [Mag-Ox] 400 mg PO BID #60 tab Topiramate [Topamax] 25 mg PO BID #60 tab Azithromycin [Zithromax] 500 mg PO DAILY #4 tablet - Follow Up Plan Condition: FAIR Disposition: HOME/ ROUTINE Instructions: Hydrocephalus (DC) Additional Instructions: follow up with your primary MD 1 week, follow up with neurology and neurosurgeon outpatient. [facility] [phone] Referrals: Guanaco Brandt MD [Staff Provider] - Jeb Wray MD [Medical Doctor] - Mars Luna MD [Staff Provider] -
== END 2018-04-28 16:20 | disposition home health service (06) ==
LOC: H.ER 13:16 → H.ERHOLD 19:54 → H.MEDSURG1 22:00
PROVIDERS: ADMIT Internal Medicine; ATTEND Internal Medicine
DX: G91.0 Communicating hydrocephalus (principal); G91.2 (Idiopathic) normal pressure hydrocephalus; G31.89 Other specified degenerative diseases of nervous system; R51 Headache; J06.9 Acute upper respiratory infection, unspecified; Z98.2 Presence of cerebrospinal fluid drainage device; Z87.891 Personal history of nicotine dependence; Z88.0 Allergy status to penicillin
CPT/HCPCS: 36415; 70250; 70450; 70551; 71045; 71046; 74018; 80048; 80053; 80061; 83880; 84443; 84484; 85025; 85027; 87804; 93005; 96360; 97162; 99285; G0378; J0456; J1100; J1650; J1885; J2405; J7040; J7050

== ENCOUNTER 2018-05-03 10:14 | Inpatient (IN) | payer MEDICARE ==
[2018-05-03] MEDS ORDERED: Sodium Chloride 0.9% 500 ML IV STA (10:42)
--- NOTE | 2018-05-03 11:26 | ED PDOC ---
HPI: Trauma/Fall - HPI Time Seen by Provider: 05/03/18 10:28 Chief Complaint (Nursing): Trauma Chief Complaint (Provider): Trauma History Per: Patient, Family History/Exam Limitations: no limitations Onset/Duration Of Symptoms: Sudden Onset Injury Occurred (Timing): Just Before Arrival Additional Complaint(s): 78 year old female with pmHx of hydrocephalus, presents to ED via EMS for an evaluation of head, neck, and upper back injury status post fall in tub prior to arrival. Patient states she felt lightheaded prior to onset then slipped, h itting herself against the faucet. At present, she denies LOC, numbness, tingling, vomiting, dizziness, chest pain, shortness of breath, or Aspirin use. Patient does additionally report feeling nauseous. Of note, patient was recently discharged from admission for an URI and completed a course of Azithromycin yesterday. PCP: Dr. August Galeana Past Medical History Reviewed: Historical Data, Nursing Documentation, Vital Signs - Medical History PMH: Denies: Chronic Kidney Disease Other PMH: hydrocephalus - Surgical History Surgical History: Cholecystectomy Other surgeries: shunt placement for hydrocephalus - Family History Family History: States: Unknown Family Hx - Home Medications Home Medications: Ambulatory Orders Medication Instructions Recorded Aspirin [Ecotrin] 81 mg PO DAILY 04/25/18 Acetaminophen [Tylenol 325mg tab] 650 mg PO Q6 PRN tab 04/28/18 Azithromycin [Zithromax] 500 mg PO DAILY #4 tablet 04/28/18 Magnesium Oxide [Mag-Ox] 400 mg PO BID #60 tab 04/28/18 Topiramate [Topamax] 25 mg PO BID #60 tab 04/28/18 - Allergies Allergies/Adverse Reactions: Allergies Allergy/AdvReac Type Severity Reaction Status Date / Time Penicillins Allergy ANAPHYLAXIS Verified 04/25/18 13:23 Review of Systems ROS Statement: Except As Marked, All Systems Reviewed And Found Negative Cardiovascular: Positive for: Light Headedness. Negative for: Chest Pain Respiratory: Negative for: Shortness of Breath Gastrointestinal: Positive for: Nausea. Negative for: Vomiting Musculoskeletal: Positive for: Neck Pain, Back Pain (upper) Neurological: Positive for: Headache. Negative for: Numbness (or tingling), Dizziness, Other (LOC) Physical Exam - Reviewed Nursing Documentation Reviewed: Yes Vital Signs Reviewed: Yes - Physical Exam Appears: Positive for: No Acute Distress, Uncomfortable Head Exam: Positive for: ATRAUMATIC, NORMAL INSPECTION, NORMOCEPHALIC Skin: Positive for: Normal Color Eye Exam: Positive for: Normal appearance, EOMI, PERRL. Negative for: Periorbital swelling ENT: Positive for: Normal ENT Inspection. Negative for: Other (hematoma) Neck: Positive for: Pain On Movement Of Neck (diffuse without hematoma) Cardiovascular/Chest: Positive for: Regular Rate, Rhythm, Chest Non Tender Respiratory: Positive for: Normal Breath Sounds. Negative for: Respiratory Distress Gastrointestinal/Abdominal: Positive for: Soft, Other (echymosis due to lovenox use on admission). Negative for: Tenderness Back: Positive for: Vertebral Tenderness (upper right back with mild erythema; mild tender). Negative for: Other (negative SLR bilaterally) Extremity: Positive for: Normal ROM (upper/lower with 5/5 strength equally), Other (hemolysis of bilateral dorsal hands from previous iv). Negative for: Deformity (upper/lower) Neurologic/Psych: Positive for: Alert, corporate communications manager II-XII (grossly intact), Oriented, Other (speaking full sentences). Negative for: Motor/Sensory Deficits, Aphasia - Laboratory Results Result Diagrams: 05/03/18 11:54 05/03/18 11:54 Lab Results: no acute - Radiology X-Ray: Interpreted by Me, Viewed By Me X-Ray Interpretation: No Acute Disease - CT Scan/US ct Other Rad Studies (CT/US): Read By Radiologist Other Rad Interpretation: no acute - Progress ED Course And Treament: 1356: Stable. AAOx3. Pain free. Still mild dizziness. Will admit tele obs. Medical Decision Making Medical Decision Making: Time: 1042 Initial Plan: * CT c-spine * CT head * Labs * IV fluids * Tylenol 650mg PO * XR thoracic Time: 1125 --CT head FINDINGS: HEMORRHAGE: No intracranial hemorrhage. BRAIN: Prior left frontal shunt catheter is unchanged in position terminating at the right lateral ventricle frontal horn. Diffuse cerebral atrophy chronic microangiopathy are stable with bilateral lateral ventricular dilatation and mild 3rd and 4th ventricle dilatation again evident. No increase in ventricular volume is suggested at either lateral ventricle or the 3rd ventricle. Bifrontal francisco holes are identified with left shunt traversing left francisco hole. Right francisco hole may be present prior removed shunt catheter or other surgical etiology. VENTRICLES: See brain section above. CALVARIUM: Other than bilateral frontal francisco holes, calvarium is otherwise intact including skull base. PARANASAL SINUSES: Unremarkable as visualized. No significant inflammatory changes. MASTOID AIR CELLS: Unremarkable as visualized. No inflammatory changes. OTHER FINDINGS: None. IMPRESSION: Stable unenhanced head CT including left ventricular shunt and pattern of bilateral lateral ventricle dilatation as well as limited 3rd and 4th ventricle dilatation. No pattern of increasing ventricular volume in the interval. No acute parenchymal findings by standard CT criteria. Follow-up CT or MRI are available if clinically warranted. Time: 1133 --CT c-spine FINDINGS: VERTEBRAE: No fracture. Normal alignment. No destructive bony lesion. DISCS/SPINAL CANAL/NEURAL FORAMINA: Multilevel degenerative spondylosis appreciated mid inferior levels without severe stenosis in any specific level occurring. At C5-6, there is mild central stenosis caused by circumferential disc osteophyte complex with osteophytic changes resulting in moderate right and moderate to severe left neural foraminal stenosis. Mild C6-7 central canal and moderate bilateral neural foraminal stenosis appreciated caused by circumferential disc osteophyte complex and facet joint degenerative arthropathy symmetrically. No gross disc herniation is appreciable however MRI is more sensitive and can be utilized for added characterization of the cervical spine if clinically warranted.. PARASPINAL SOFT TISSUES: Unremarkable. OTHER FINDINGS: Incidental note is made of left maxillary sinusitis as well as bilateral thyroid lobe nodules, partially calcified. Mild biapical pulmonary fibrotic changes are also identified. IMPRESSION: 1. No acute fracture or spondylolisthesis. Normal curvature identified. 2. Degenerative spinal stenosis identified at C5-6 and C6-7 including central canal and bilateral neural foramina. No gross disc herniation appreciable. Further characterization by MRI is available if clinically warranted. 3. Incidental bilateral thyroid lobe nodules, left maxillary sinusitis and limited fibrosis bilateral pulmonary apices. Scribe Attestation: Documented by Cheryl Massey, acting as a scribe for Cornell Lyman MD. Provider Scribe Attestation: All medical record entries made by the Scribe were at my direction and personally dictated by me. I have reviewed the chart and agree that the record accurately reflects my personal performance of the history, physical exam, medical decision making, and the department course for this patient. I have also personally directed, reviewed, and agree with the discharge instructions and disposition. Disposition - Clinical Impression Clinical Impression: Dizziness, Head injury - Patient ED Disposition Is Patient to be Admitted: Yes Counseled Patient/Family Regarding: Studies Performed, Diagnosis - Disposition Disposition Time: 13:59 Condition: FAIR
--- NOTE | 2018-05-03 11:29 | CT ---
Date of service: 05/03/2018 PROCEDURE: CT HEAD WITHOUT CONTRAST. HISTORY: headache COMPARISON: Unenhanced head CT 04/25/2017. TECHNIQUE: Axial computed tomography images were obtained through the head/brain without intravenous contrast. Radiation dose: Total exam DLP = 906.5 mGy-cm. This CT exam was performed using one or more of the following dose reduction techniques: Automated exposure control, adjustment of the mA and/or kV according to patient size, and/or use of iterative reconstruction technique. FINDINGS: HEMORRHAGE: No intracranial hemorrhage. BRAIN: Prior left frontal shunt catheter is unchanged in position terminating at the right lateral ventricle frontal horn. Diffuse cerebral atrophy chronic microangiopathy are stable with bilateral lateral ventricular dilatation and mild 3rd and 4th ventricle dilatation again evident. No increase in ventricular volume is suggested at either lateral ventricle or the 3rd ventricle. Bifrontal francisco holes are identified with left shunt traversing left francisco hole. Right francisco hole may be present prior removed shunt catheter or other surgical etiology. VENTRICLES: See brain section above. CALVARIUM: Other than bilateral frontal francisco holes, calvarium is otherwise intact including skull base. PARANASAL SINUSES: Unremarkable as visualized. No significant inflammatory changes. MASTOID AIR CELLS: Unremarkable as visualized. No inflammatory changes. OTHER FINDINGS: None. IMPRESSION: Stable unenhanced head CT including left ventricular shunt and pattern of bilateral lateral ventricle dilatation as well as limited 3rd and 4th ventricle dilatation. No pattern of increasing ventricular volume in the interval. No acute parenchymal findings by standard CT criteria. Follow-up CT or MRI are available if clinically warranted.
--- NOTE | 2018-05-03 11:37 | CT ---
Date of service: 05/03/2018 PROCEDURE: CT Cervical Spine without contrast HISTORY: neck pain COMPARISON: None available. TECHNIQUE: Axial computed tomography images were obtained of the cervical spine without the use of intravenous contrast. Coronal and sagittal reformatted images were created and reviewed. Radiation dose: Total exam DLP = 390.33 mGy-cm. This CT exam was performed using one or more of the following dose reduction techniques: Automated exposure control, adjustment of the mA and/or kV according to patient size, and/or use of iterative reconstruction technique. FINDINGS: VERTEBRAE: No fracture. Normal alignment. No destructive bony lesion. DISCS/SPINAL CANAL/NEURAL FORAMINA: Multilevel degenerative spondylosis appreciated mid inferior levels without severe stenosis in any specific level occurring. At C5-6, there is mild central stenosis caused by circumferential disc osteophyte complex with osteophytic changes resulting in moderate right and moderate to severe left neural foraminal stenosis. Mild C6-7 central canal and moderate bilateral neural foraminal stenosis appreciated caused by circumferential disc osteophyte complex and facet joint degenerative arthropathy symmetrically. No gross disc herniation is appreciable however MRI is more sensitive and can be utilized for added characterization of the cervical spine if clinically warranted.. PARASPINAL SOFT TISSUES: Unremarkable. OTHER FINDINGS: Incidental note is made of left maxillary sinusitis as well as bilateral thyroid lobe nodules, partially calcified. Mild biapical pulmonary fibrotic changes are also identified. IMPRESSION: 1. No acute fracture or spondylolisthesis. Normal curvature identified. 2. Degenerative spinal stenosis identified at C5-6 and C6-7 including central canal and bilateral neural foramina. No gross disc herniation appreciable. Further characterization by MRI is available if clinically warranted. 3. Incidental bilateral thyroid lobe nodules, left maxillary sinusitis and limited fibrosis bilateral pulmonary apices.
[2018-05-03 11:59] LABS: BASO # 0.1 K/uL (0.0-0.2); EOS % 0.2 % (0.0-4.0); HEMOGLOBIN 13.8 g/dL (12.0-16.0); LYMPH # 0.9 K/uL (1.0-4.3); MEAN CELL VOLUME 87.4 fl (81.0-99.0); MEAN CORPUSCULAR HEMOGLOBIN 28.4 pg (27.0-31.0); MEAN CORPUSCULAR HGB CONC 32.4 g/dL (33.0-37.0); MEAN PLATELET VOLUME 7.6 fl (7.2-11.7); MONO # 0.7 K/uL (0.0-0.8); MONO % 6.8 % (0.0-10.0); NEUT # 8.4 K/uL (1.8-7.0); NRBC % 0.1 % (0.0-0.0); PLATELET COUNT 399 K/uL (130-400); RBC 4.86 Mil/uL (3.80-5.20); RED CELL DISTRIBUTION WIDTH 13.4 % (11.5-14.5); WHITE BLOOD COUNT 10.1 K/uL (4.8-10.8)
[2018-05-03 12:07] LABS: INR 1.1; PROTHROMBIN TIME 12.9 Seconds (9.8-13.1)
[2018-05-03 12:09] LABS: PARTIAL THROMBOPLASTIN TIME 27.9 Seconds (25.6-37.1)
[2018-05-03 12:16] LABS: ALB/GLOB RATIO 1.1 (1.0-2.1); ALBUMIN 4.2 g/dL (3.5-5.0); ALT/SGPT 59 U/L (9-52); AST/SGOT 52 U/L (14-36); BLOOD UREA NITROGEN 17 mg/dl (7-17); CALCIUM 9.2 mg/dL (8.4-10.2); GFR NON-AFRICAN AMERICAN > 60
[2018-05-03 12:31] LABS: LYMPHOCYTE 13 % (20-50); MONOCYTE 10 % (0-10); NEUTROPHIL 77 % (42-75); PLATELET ESTIMATE NORMAL (NORMAL); TOTAL CELLS COUNTED 100
--- NOTE | 2018-05-03 15:15 | RAD ---
Date of service: 05/03/2018 HISTORY: pain COMPARISON: No prior. FINDINGS: BONES: No acute compression fractures however there are minor chronic anterior wedge deformities of a few mid thoracic segments... There is slight increased kyphosis as a result DISC SPACES: Moderate multilevel degenerative spondylosis. Changes include varying degrees of disc space narrowing with endplate eburnation and anterolateral osteophyte formation. SOFT TISSUES: Normal. OTHER FINDINGS: None. IMPRESSION: Minor chronic anterior wedge deformities of a few mid thoracic segments. Moderate multilevel degenerative spondylosis..
--- NOTE | 2018-05-03 18:55 | CARD ---
APPROVED REPORT Date of service: 05/03/2018 EKG Measurement Heart [id number] <Conclusion> Normal sinus rhythm Left axis deviation Right bundle branch block Inferior infarct, age indeterminate Abnormal ECG
[2018-05-03] MEDS: Magnesium Oxide 400 mg Tab UD PO SCH (20:11)
--- NOTE | 2018-05-04 04:33 | HP ---
HISTORY OF PRESENT ILLNESS: Ms. Cason is a 78-year-old female who was admitted via the emergency room following an accidental fall, in bathtub at home. She indicated that she was taking bath and slipped and fell sustaining trauma to the back of the head. She was melanie that the nephew who was on his way to the house at the same time, he picked her up and then called 911 and she was taken to the hospital where workup so far has been non-revealing with CAT scans and x-rays which have not revealed any fractures. PAST MEDICAL HISTORY: She has a past medical history of hydrocephalus for which she had a shunt placed. PAST SURGICAL HISTORY: She also has a history of cholecystectomy in the past. CURRENT MEDICATIONS: She is presently on Topamax and aspirin. FAMILY HISTORY: Noncontributory. SOCIAL HISTORY: Does not drink or smoke. Lives alone. REVIEW OF SYSTEMS: Essentially remarkable for gait disturbance and she walks with a walker. PHYSICAL EXAMINATION: GENERAL: She is alert and oriented x3. Still presently feels little dizzy. VITAL SIGNS: Remarkable for blood pressure of 147/79, pulse of 69, and respiratory rate 18. She is afebrile. O2 sat 98% on room air. SKIN: Shows fair turgor. HEENT: Pupils are reactive to light and accommodation. Head: Normocephalic and atraumatic. Shunt in place over the left occipital area. ABDOMEN: Soft, nontender. No organomegaly. LUNGS: Clear. HEART: Regular, no murmurs or gallops. EXTREMITIES: Show no edema or cyanosis, but lower extremities are weak. CENTRAL NERVOUS SYSTEM: Remarkable for weak extremities. Otherwise no other gross deficits appreciated. LABORATORY DATA: WBC 10.1, hemoglobin 13.8, and platelet count of 399,000. Sodium of 139, potassium 4.5, BUN 17, creatinine 0.5. AST 52, ALT 59, troponin less than 0.012. CT scan of head, cervical spine, thoracic spine shows no fractures. EKG, normal sinus rhythm, left axis deviation, right bundle branch block. IMPRESSION: Accidental fall with head trauma, history of hydrocephalus, history of deconditioning. PLAN: Analgesics for pain, neuro checks. The patient lives alone and family is requesting for subacute care placement prior to being discharged home. We will continue to monitor in telemetry. Await neurology evaluation. Further therapy will dependent on findings. Request social media job titles to intervene regarding subacute care. So I already ordered since the patient lives alone and will be unable to care for herself at home without adequate health. Carlos Thakkar MD
--- NOTE | 2018-05-04 08:50 | CP.PCM.PN ---
Subjective - Date & Time of Evaluation Date of Evaluation: 05/04/18 Time of Evaluation: 08:50 - Subjective Subjective: FEELS WEAK GAIT IS STILL UNSTEADY PT AND FAMILY REQUESTING SUBACUTE CARE SINCE SHE LIVES ALONE AND IS UNABLE TO CARE FOR SELF--IT IS UNSAFE TO SEND HER HOME ALONE Objective - Vital Signs/Intake and Output Vital Signs (last 24 hours): Temp Pulse Resp BP Pulse Ox 97.3 F L 63 18 102/64 96 05/04/18 07:58 05/04/18 07:58 05/04/18 07:58 05/04/18 07:58 05/04/18 07:58 - Medications Medications: Current Medications Acetaminophen (Tylenol 325mg Tab) 650 mg PO Q6 PRN PRN Reason: Headache Aspirin (Ecotrin) 81 mg PO DAILY [facility] Magnesium Oxide (Mag-Ox) 400 mg PO BID [facility] Last Admin: 05/03/18 20:11 Dose: 400 mg Topiramate (Topamax) 25 mg PO BID [facility] Last Admin: 05/03/18 20:11 Dose: 25 mg - Labs Labs: 05/03/18 11:54 05/03/18 11:54 PT 12.9 Seconds (9.8-13.1) 05/03/18 11:54 INR 1.1 05/03/18 11:54 APTT 27.9 Seconds (25.6-37.1) 05/03/18 11:54 - Constitutional Appears: Chronically Ill - Head Exam Head Exam: ATRAUMATIC, NORMAL INSPECTION, NORMOCEPHALIC - Eye Exam Eye Exam: EOMI, Normal appearance, PERRL Pupil Exam: NORMAL ACCOMODATION, PERRL - ENT Exam ENT Exam: Mucous Membranes Moist, Normal Exam - Neck Exam Neck Exam: Full ROM, Normal Inspection. absent: Lymphadenopathy - Respiratory Exam Respiratory Exam: Clear to Ausculation Bilateral, NORMAL BREATHING PATTERN - Cardiovascular Exam Cardiovascular Exam: REGULAR RHYTHM, +S1, +S2. absent: Murmur - GI/Abdominal Exam GI & Abdominal Exam: Soft, Normal Bowel Sounds. absent: Tenderness - Rectal Exam Rectal Exam: NORMAL INSPECTION - Exam Bimanual exam: NORMAL BIMANUAL EXAM - Extremities Exam Extremities Exam: Full ROM, Normal Capillary Refill, Normal Inspection. 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
[2018-05-04] MEDS: Magnesium Oxide 400 mg Tab UD PO SCH ×2 (09:12→18:02)
--- NOTE | 2018-05-05 08:13 | CP.PCM.PN ---
Subjective - Date & Time of Evaluation Date of Evaluation: 05/05/18 Time of Evaluation: 08:16 - Subjective Subjective: GAIT STILL UNSTEADY C/O HEADACHES MILD CHEST PAINS OR SOB HAS PALPITATIONS Objective - Vital Signs/Intake and Output Vital Signs (last 24 hours): Temp Pulse Resp BP Pulse Ox 97.2 F L 66 18 101/60 98 05/05/18 07:59 05/05/18 07:59 05/05/18 07:59 05/05/18 07:59 05/05/18 07:59 - Medications Medications: Current Medications Acetaminophen (Tylenol 325mg Tab) 650 mg PO Q6 PRN PRN Reason: Headache Aspirin (Ecotrin) 81 mg PO DAILY [facility] Last Admin: 05/04/18 09:12 Dose: 81 mg Magnesium Oxide (Mag-Ox) 400 mg PO BID [facility] Last Admin: 05/04/18 18:02 Dose: 400 mg Topiramate (Topamax) 25 mg PO BID [facility] Last Admin: 05/04/18 18:02 Dose: 25 mg - Labs Labs: 05/03/18 11:54 05/03/18 11:54 PT 12.9 Seconds (9.8-13.1) 05/03/18 11:54 INR 1.1 05/03/18 11:54 APTT 27.9 Seconds (25.6-37.1) 05/03/18 11:54 - Constitutional Appears: Chronically Ill - Head Exam Head Exam: ATRAUMATIC, NORMAL INSPECTION, NORMOCEPHALIC - Eye Exam Eye Exam: EOMI, Normal appearance, PERRL Pupil Exam: NORMAL ACCOMODATION, PERRL - ENT Exam ENT Exam: Mucous Membranes Moist, Normal Exam - Neck Exam Neck Exam: Full ROM, Normal Inspection, Tenderness. absent: Lymphadenopathy - Respiratory Exam Respiratory Exam: Clear to Ausculation Bilateral, NORMAL BREATHING PATTERN - Cardiovascular Exam Cardiovascular Exam: REGULAR RHYTHM, +S1, +S2. absent: Murmur Additional comments: FEW EXTRASYSTOLES - GI/Abdominal Exam GI & Abdominal Exam: Soft, Normal Bowel Sounds. absent: Tenderness - Rectal Exam Rectal Exam: NORMAL INSPECTION - Extremities Exam Extremities Exam: Full ROM, Normal Capillary Refill, Normal Inspection. absent: Joint Swelling, Pedal Edema - Back Exam Back Exam: NORMAL INSPECTION - Neurological Exam Neurological Exam: Abnormal Gait, Alert, Awake, CN II-XII Intact, Oriented x3 - Psychiatric Exam Psychiatric exam: Normal Affect, Normal Mood - Skin Skin Exam: Dry, Intact, Normal Color, Warm Assessment and Plan - Assessment and Plan (Free Text) Assessment: SYNCOPE DECONDITIONING PALPITATIONS--R/O ARRYTHMIAS HEAD TRAUMA HYDROCEPHALUS Plan: SCHEDULE FOR ECHO THYROID FUNCTION TELE MONITORING CONSIDER SUBACUTE CARE PRIOR TO D/C HOME
[2018-05-05] MEDS: Magnesium Oxide 400 mg Tab UD PO SCH ×2 (09:04→17:33)
[2018-05-05 10:28] LABS: T4 12.6 ug/dl (5.5-11.0)
--- NOTE | 2018-05-05 20:40 | CARD ---
APPROVED REPORT Date of service: 05/05/2018 EXAM: Two-dimensional and M-mode echocardiogram with Doppler and color Doppler. Other Information Quality : AverageRhythm : NSR INDICATION Syncope 2D DIMENSIONS IVSd1.23 (0.7-1.1cm)LVDd4.39 (3.9-5.9cm) PWd1.13 (0.7-1.1cm)IVSs1.70 (0.8-1.2cm) LVDs2.49 (2.5-4.0cm)FS (%) 43.2 % PWs1.59 (0.8-1.2cm) M-Mode DIMENSIONS Left Atrium (MM)2.78 (2.5-4.0cm)Aortic Root3.41 (2.2-3.7cm) Aortic Cusp Exc.2.22 (1.5-2.0cm) Aortic Valve AoV Peak Ujnldskz510.2cm/sAoV VTI28.3cmAO Peak GR.9mmHg LVOT Peak Iydwyeao611.9cm/sLVOT VTI18.99cmAO Mean GR.5mmHg Mitral Valve MV E Eupqdymi85.7cm/sMV DECEL [id number] A Szjfvdtj45.4cm/s MV DCW82zcK/A ratio1.0MVA (PHT)2.91cm2 TDI E/Lateral E'0.0E/Medial E'0.0 LEFT VENTRICLE The left ventricle is normal size. There is normal left ventricular wall thickness. The left ventricular systolic function is normal. The estimated ejection fraction is 55-60% No regional wall motion abnormalities noted.. Transmitral Doppler flow pattern is Grade I-abnormal relaxation pattern. No left ventricle thrombus noted on this study. There is no ventricular septal defect visualized. There is no left ventricular aneurysm. There is no mass noted in the left ventricle. RIGHT VENTRICLE The right ventricle is normal size. There is normal right ventricular wall thickness. The right ventricular systolic function is normal. ATRIA The left atrium size is normal. The right atrium size is normal. The interatrial septum is intact with no evidence for an atrial septal defect. AORTIC VALVE The aortic valve is normal in structure. No aortic regurgitation is present. There is no aortic valvular stenosis. There is no aortic valvular vegetation. MITRAL VALVE The mitral valve is normal in structure. There is no evidence of mitral valve prolapse. There is no mitral valve stenosis. There is no mitral valve regurgitation noted. TRICUSPID VALVE The tricuspid valve is normal in structure. There is no tricuspid valve regurgitation noted. There is no tricuspid valve prolapse or vegetation. There is no tricuspid valve stenosis. PULMONIC VALVE The pulmonary valve is normal in structure. There is no pulmonic valvular regurgitation. There is no pulmonic valvular stenosis. GREAT VESSELS The aortic root is normal in size. The ascending aorta is normal in size. The pulmonary artery is normal. The IVC is normal in size and collapses >50% with inspiration. PERICARDIAL EFFUSION There is no pericardial effusion. There is no pleural effusion. <Conclusion> Technically difficult study There is normal left ventricular wall thickness. The estimated ejection fraction is 55-60% Transmitral Doppler flow pattern is Grade I-abnormal relaxation pattern. The left atrium size is normal. There is no tricuspid valve regurgitation noted.
[2018-05-06] MEDS: Magnesium Oxide 400 mg Tab UD PO SCH ×2 (08:36→16:31)
--- NOTE | 2018-05-06 11:07 | CP.PCM.PN ---
Subjective - Date & Time of Evaluation Date of Evaluation: 05/06/18 Time of Evaluation: 11:07 - Subjective Subjective: STILL HAVING HEADACHES AND DIZZINESS GAIT IS UNSTEADY Objective - Vital Signs/Intake and Output Vital Signs (last 24 hours): Temp Pulse Resp BP Pulse Ox 98 F 56 L 18 100/63 97 05/06/18 09:00 05/06/18 09:00 05/06/18 09:00 05/06/18 09:00 05/06/18 09:00 - Medications Medications: Current Medications Acetaminophen (Tylenol 325mg Tab) 650 mg PO Q6 PRN PRN Reason: Headache Last Admin: 05/06/18 02:24 Dose: 650 mg Aspirin (Ecotrin) 81 mg PO DAILY [facility] Last Admin: 05/06/18 08:36 Dose: 81 mg Magnesium Oxide (Mag-Ox) 400 mg PO BID [facility] Last Admin: 05/06/18 08:36 Dose: 400 mg Topiramate (Topamax) 25 mg PO BID [facility] Last Admin: 05/06/18 08:36 Dose: 25 mg - Labs Labs: 05/03/18 11:54 05/03/18 11:54 PT 12.9 Seconds (9.8-13.1) 05/03/18 11:54 INR 1.1 05/03/18 11:54 APTT 27.9 Seconds (25.6-37.1) 05/03/18 11:54 - Constitutional Appears: Chronically Ill - Head Exam Head Exam: ATRAUMATIC, NORMAL INSPECTION, NORMOCEPHALIC - Eye Exam Eye Exam: EOMI, Normal appearance, PERRL Pupil Exam: NORMAL ACCOMODATION, PERRL - ENT Exam ENT Exam: Mucous Membranes Moist, Normal Exam - Neck Exam Neck Exam: Full ROM, Normal Inspection. absent: Lymphadenopathy - Respiratory Exam Respiratory Exam: Clear to Ausculation Bilateral, NORMAL BREATHING PATTERN - Cardiovascular Exam Cardiovascular Exam: REGULAR RHYTHM, +S1, +S2. absent: Murmur - GI/Abdominal Exam GI & Abdominal Exam: Soft, Normal Bowel Sounds. absent: Tenderness - Rectal Exam Rectal Exam: NORMAL INSPECTION - Extremities Exam Extremities Exam: Full ROM, Normal Capillary Refill, Normal Inspection. absent: Joint Swelling, Pedal Edema - Back Exam Back Exam: NORMAL INSPECTION - Neurological Exam Neurological Exam: Abnormal Gait, Alert, Awake, CN II-XII Intact, Oriented x3 - Psychiatric Exam Psychiatric exam: Normal Affect, Normal Mood - Skin Skin Exam: Dry, Intact, Normal Color, Warm Assessment and Plan - Assessment and Plan (Free Text) Assessment: SYNCOPE HYDROCEPALLUS HEADACHES UNSTEADY GAIT Plan: CONTINUE TELEMETRY MONITORING FOR POSSIBLE SUBACUTE CARE TRANSFER
--- NOTE | 2018-05-06 11:28 | CP.PCM.PN ---
Subjective - Date & Time of Evaluation Date of Evaluation: 05/06/18 Time of Evaluation: 11:26 - Subjective Subjective: Neuro Follow-Up Note: Mrs. Cason was evaluated this morning sitting OOB to chair. She is well known to me from recent hospitalization last week. She states that she feels well. Her dizziness since this admission has resolved. She still c/o h/a on and off; no h/a at this time. Per pt she is compliant with Topamax and Mag Oxide as we had ordered last week. She is pending d/c to rehab facility at this time. Denies dizziness, visual changes, chest pain, sob, cough, abd pain, n/v/d. Objective - Vital Signs/Intake and Output Vital Signs (last 24 hours): Temp Pulse Resp BP Pulse Ox 98 F 56 L 18 100/63 97 05/06/18 09:00 05/06/18 09:00 05/06/18 09:00 05/06/18 09:00 05/06/18 09:00 - Medications Medications: Current Medications Acetaminophen (Tylenol 325mg Tab) 650 mg PO Q6 PRN PRN Reason: Headache Last Admin: 05/06/18 02:24 Dose: 650 mg Aspirin (Ecotrin) 81 mg PO DAILY [facility] Last Admin: 05/06/18 08:36 Dose: 81 mg Magnesium Oxide (Mag-Ox) 400 mg PO BID [facility] Last Admin: 05/06/18 08:36 Dose: 400 mg Topiramate (Topamax) 25 mg PO BID [facility] Last Admin: 05/06/18 08:36 Dose: 25 mg - Labs Labs: 05/03/18 11:54 05/03/18 11:54 PT 12.9 Seconds (9.8-13.1) 05/03/18 11:54 INR 1.1 05/03/18 11:54 APTT 27.9 Seconds (25.6-37.1) 05/03/18 11:54 - Constitutional Appears: Well, Non-toxic, No Acute Distress - Head Exam Head Exam: ATRAUMATIC, NORMAL INSPECTION, NORMOCEPHALIC - Eye Exam Eye Exam: EOMI, Normal appearance Pupil Exam: NORMAL ACCOMODATION, PERRL - ENT Exam ENT Exam: Mucous Membranes Moist - Neck Exam Neck Exam: Full ROM, Normal Inspection - Respiratory Exam Respiratory Exam: NORMAL BREATHING PATTERN - GI/Abdominal Exam GI & Abdominal Exam: Soft - Extremities Exam Extremities Exam: Full ROM. absent: Calf Tenderness, Pedal Edema Additional comments: generalized weakness 2/2 deconditioning - Back Exam Back Exam: Full ROM - Neurological Exam Neurological Exam: Alert, Awake, CN II-XII Intact, Oriented x3, Reflexes Normal Neuro motor strength exam: Left Upper Extremity: 4, Right Upper Extremity: 4, Left Lower Extremity: 4, Right Lower Extremity: 4 Additional comments: No focal neuro deficits FROM to all extremities with generalized weakness 2/2 deconditioning No tremors - Psychiatric Exam Psychiatric exam: Normal Affect, Normal Mood - Skin Skin Exam: Normal Color Assessment and Plan (1) Dizziness Assessment & Plan: Imaging reviewed: -CT Head (05/03/18): no acute findings compared to last CT done last week -ECHO: EF 55-60% Dizziness has resolved. Mrs. 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 She was instructed last week prior to her d/c to f/u with Dr. Brandt (neurosurgery) as outpatient for further management of the POCKET AND PULLEY MACHINE OPERATOR shunt. For her h/a we have had her on Topamax and Mag Oxide which she is tolerating well. Otherwise she is doing well neurologically. -Pending [facility] placement -Continue Topamax and Mag Oxide at rehab as ordered here. -F/u with neurosurgery and neuro in offices within 4 weeks. -Reconsult prn. Thank you for allowing us to participate in this pt's care. Discussed with Dr. Wray Status: Acute
--- NOTE | 2018-05-06 16:56 | CP.PCM.CON ---
History of Present Illness - History of Present Illness History of Present Illness: Miss Bing Cason is a 78 yr old woman who was called for Neurology consult by internal medicine team. Miss Cason is a 78 yr old woman who is admitted after she had a spell of light headedness that led to her slipping then hitting her head on the faucet. On admission to the ER, she denies LOC, numbness, tingling, vomiting, dizziness, chest pain, shortness of breath, or Aspirin use. Patient does additionally report feeling nauseous. Of note, patient was recently discharged from admission for an URI and completed a course of Azithromycin yesterday. 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 ROS: no loc, no numbness, no tingling, no headache. HEENT: normal CVS: S1 S2 normal. no murmurs Abd: normal. On exam: AAox3. PERRL. Cn 2-12 normal. EOMI. VFF. Speech fluent. Can name and repeat. No paraphasic errors. motor: tone normal. strength: 5/5 ul and ll bl. Sensory: intact ft, pin, position and vibration sense. Cerebellar: f/n no dysmetria Gait: normal. no ataxia +2 dtr ul and ll bl. Toes downgoing. No clonus. Past Patient History - Past Medical History & Family History Past Medical History?: Yes - Past Social History Smoking Status: Former Smoker - CARDIAC Hx Cardiac Disorders: No - PULMONARY Hx Respiratory Disorders: No - NEUROLOGICAL Hx Neurological Disorder: Yes - HEENT Hx HEENT Problems: No - RENAL Hx Chronic Kidney Disease: No - ENDOCRINE/METABOLIC Hx Endocrine Disorders: Yes Hx Hyperthyroidism: Yes - HEMATOLOGICAL/ONCOLOGICAL Hx Blood Disorders: No - INTEGUMENTARY Hx Dermatological Problems: No - MUSCULOSKELETAL/RHEUMATOLOGICAL Hx Musculoskeletal Disorders: Yes Hx Falls: Yes - GASTROINTESTINAL Hx Gastrointestinal Disorders: No - GENITOURINARY/GYNECOLOGICAL Hx Genitourinary Disorders: No - PSYCHIATRIC Hx Psychophysiologic Disorder: No - SURGICAL HISTORY Hx Cholecystectomy: Yes Hx Orthopedic Surgery: Yes - ANESTHESIA Hx Anesthesia: No Hx Anesthesia Reactions: No Meds Allergies/Adverse Reactions: Allergies Allergy/AdvReac Type Severity Reaction Status Date / Time Penicillins Allergy ANAPHYLAXIS Verified 04/25/18 13:23 - Medications Medications: Current Medications Acetaminophen (Tylenol 325mg Tab) 650 mg PO Q6 PRN PRN Reason: Headache Last Admin: 05/06/18 02:24 Dose: 650 mg Aspirin (Ecotrin) 81 mg PO DAILY [facility] Last Admin: 05/06/18 08:36 Dose: 81 mg Magnesium Oxide (Mag-Ox) 400 mg PO BID [facility] Last Admin: 05/06/18 16:31 Dose: 400 mg Topiramate (Topamax) 25 mg PO BID [facility] Last Admin: 05/06/18 16:31 Dose: 25 mg Results - Vital Signs Recent Vital Signs: Last Vital Signs Temp 97.5 F L 05/06/18 16:21 Pulse 74 05/06/18 16:21 Resp 20 05/06/18 16:21 BP 109/66 05/06/18 16:21 Pulse Ox 96 05/06/18 16:21 - Labs Result Diagrams: 05/03/18 11:54 05/03/18 11:54 Assessment & Plan - Assessment and Plan (Free Text) Assessment: ct head: shows left ventricular shunt that is stable with no increase in hydrocephalus. Impression: . Miss Cason is a 78 yr old woman with hydrocephalus, SERVICE DEPARTMENT MANAGER shunt in place, who is admitted for dizziness. PLan; 1. Repeat CT head 2. consider MRI brain 3. Patient may need vestibular therapy. Dr. Regalado
[2018-05-07 04:58] VITALS: RESP 20; O2SAT 97
[2018-05-07 07:53] VITALS: BP 96/64; PULSE 61; TEMP 98
[2018-05-07] MEDS: Magnesium Oxide 400 mg Tab UD PO SCH (09:39)
--- NOTE | 2018-05-07 09:46 | CP.PCM.DIS ---
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 Status: Acute (2) Dizziness Status: Acute (3) Head injury Status: Acute (4) Generalized weakness Status: Acute Priority: Medium (5) Hydrocephalus in adult Status: Chronic Priority: Medium (6) Headache Status: Resolved Priority: Medium Hospital Course - Lab Results Lab Results: Most Recent Lab Values WBC 10.1 K/uL (4.8-10.8) 05/03/18 11:54 RBC 4.86 Mil/uL (3.80-5.20) 05/03/18 11:54 Hgb 13.8 g/dL (12.0-16.0) 05/03/18 11:54 Hct 42.5 % (34.0-47.0) 05/03/18 11:54 MCV 87.4 fl (81.0-99.0) 05/03/18 11:54 MCH 28.4 pg (27.0-31.0) 05/03/18 11:54 MCHC 32.4 g/dL (33.0-37.0) L 05/03/18 11:54 RDW 13.4 % (11.5-14.5) 05/03/18 11:54 Plt Count 399 K/uL (130-400) 05/03/18 11:54 MPV 7.6 fl (7.2-11.7) 05/03/18 11:54 Neut % (Auto) 83.0 % (50.0-75.0) H 05/03/18 11:54 Lymph % (Auto) 9.0 % (20.0-40.0) L 05/03/18 11:54 [place] % (Auto) 6.8 % (0.0-10.0) 05/03/18 11:54 Eos % (Auto) 0.2 % (0.0-4.0) 05/03/18 11:54 Baso % (Auto) 1.0 % (0.0-2.0) 05/03/18 11:54 Neut # (Auto) 8.4 K/uL (1.8-7.0) H 05/03/18 11:54 Lymph # (Auto) 0.9 K/uL (1.0-4.3) L 05/03/18 11:54 [place] # (Auto) 0.7 K/uL (0.0-0.8) 05/03/18 11:54 Eos # (Auto) 0.0 K/uL (0.0-0.7) 05/03/18 11:54 Baso # (Auto) 0.1 K/uL (0.0-0.2) 05/03/18 11:54 Neutrophils % (Manual) 77 % (42-75) H 05/03/18 11:54 Lymphocytes % (Manual) 13 % (20-50) L 05/03/18 11:54 Monocytes % (Manual) 10 % (0-10) 05/03/18 11:54 Platelet Estimate Normal (NORMAL) 05/03/18 11:54 RBC Morphology Normal (NORMAL) 05/03/18 11:54 PT 12.9 Seconds (9.8-13.1) 05/03/18 11:54 INR 1.1 05/03/18 11:54 APTT 27.9 Seconds (25.6-37.1) 05/03/18 11:54 Sodium 139 mmol/l (132-148) 05/03/18 11:54 Potassium 4.5 MMOL/L (3.6-5.0) 05/03/18 11:54 Chloride 108 mmol/L (98-107) H 05/03/18 11:54 Carbon Dioxide 22 mmol/L (22-30) 05/03/18 11:54 Anion Gap 14 (10-20) 05/03/18 11:54 BUN 17 mg/dl (7-17) 05/03/18 11:54 Creatinine 0.5 mg/dl (0.7-1.2) L 05/03/18 11:54 Est GFR ( Amer) > 60 05/03/18 11:54 Est GFR (Non-Af Amer) > 60 05/03/18 11:54 Random Glucose 115 mg/dL (65-105) H 05/03/18 11:54 Calcium 9.2 mg/dL (8.4-10.2) 05/03/18 11:54 Total Bilirubin 0.8 mg/dl (0.2-1.3) 05/03/18 11:54 AST 52 U/L (14-36) H D 05/03/18 11:54 ALT 59 U/L (9-52) H D 05/03/18 11:54 Alkaline Phosphatase 90 U/L (38-126) 05/03/18 11:54 Troponin I < 0.0120 ng/mL (0.00-0.120) 05/03/18 11:54 Total Protein 8.0 G/DL (6.3-8.2) 05/03/18 11:54 Albumin 4.2 g/dL (3.5-5.0) 05/03/18 11:54 Globulin 3.8 gm/dL (2.2-3.9) 05/03/18 11:54 Albumin/Globulin Ratio 1.1 (1.0-2.1) 05/03/18 11:54 Thyroxine (T4) 12.6 ug/dl (5.5-11.0) H 05/05/18 09:57 TSH 3rd Generation 0.86 mIU/ML (0.46-4.68) 05/05/18 09:57 - Hospital Course Hospital Course: HEADACHES AND DIZZINESS IMPROVED GAIT IMPROVED VITALS STABLE Discharge Exam - Head Exam Head Exam: ATRAUMATIC, NORMAL INSPECTION, NORMOCEPHALIC - Eye Exam Eye Exam: EOMI, Normal appearance, PERRL Pupil Exam: NORMAL ACCOMODATION, PERRL - GI/Abdominal Exam GI & Abdominal Exam: Normal Bowel Sounds - Rectal Exam Rectal Exam: NORMAL INSPECTION - Neurological Exam Neurological exam: Alert, CN II-XII Intact, Normal Gait, Oriented x3, Reflexes Normal - Psychiatric Exam Psychiatric exam: Normal Affect, Normal Mood - Skin Skin Exam: Dry, Intact, Normal Color, Warm Discharge Plan - Follow Up Plan Condition: FAIR Disposition: HOME/ ROUTINE Instructions: Preventing Falls in the Older Adult, Syncope (Fainting) (DC) Additional Instructions: TRANSFER TO SUBACUTE CARE Referrals: Dave Regalado MD [Medical Doctor] - Carlos Thakkar MD [Staff Provider] -
== END 2018-05-07 11:28 | DRG 914 ==
LOC: H.ER 10:14 → H.ERHOLD 13:52 → H.TEL 16:05 → OBSVTOIN 05-04 08:45
PROVIDERS: ADMIT Internal Medicine Pulmonary Disease; ATTEND Internal Medicine Pulmonary Disease
DX: S09.90XA Unspecified injury of head, initial encounter (principal); G91.8 Other hydrocephalus; Z98.2 Presence of cerebrospinal fluid drainage device; R55 Syncope and collapse; R53.1 Weakness; R26.81 Unsteadiness on feet; R00.2 Palpitations; M54.2 Cervicalgia; W18.2XXA Fall in (into) shower or empty bathtub, initial encounter; M48.02 Spinal stenosis, cervical region; J32.0 Chronic maxillary sinusitis; E04.2 Nontoxic multinodular goiter; Z60.2 Problems related to living alone; Z75.1 Person awaiting admission to adequate facility elsewhere; Z79.82 Long term (current) use of aspirin; Z87.891 Personal history of nicotine dependence; Z88.0 Allergy status to penicillin; Y92.002 Bathroom of unspecified non-institutional (private) residence as the place of occurrence of the external cause; Y93.E1 Activity, personal bathing and showering